=== PATIENT | female | born 1955 | race Two or more races ===

== ENCOUNTER 2017-09-25 11:21 | Outpatient (CLI) | payer OTHER | END 2017-09-25 11:34 | disposition home or self-care (01) | LOC: RAD 11:21 | DX: J45.22 Mild intermittent asthma with status asthmaticus (principal); R05 Cough ==

== ENCOUNTER → 2018-07-20 | Outpatient (CLI) | payer OTHER | END | disposition home or self-care (01) | LOC: RAD 12:24 | DX: M72.2 Plantar fascial fibromatosis (principal); M25.551 Pain in right hip ==

== ENCOUNTER 2019-05-28 10:17 | Emergency (ER) | payer OTHER ==
[~2019-05-28] VITALS: Ht 165.1 cm; Wt 93.0 kg
[2019-05-28] MEDS ORDERED: DIVIGEL1 EAC1 TD (10:49)
[2019-05-28] MEDS ORDERED: WELLBUTRIN XL300 MG PO (10:50)
[2019-05-28] MEDS ORDERED: CIPRO500 MG PO (15:12)
[2019-05-28] MEDS ORDERED: PROBIOTIC1 EAC4 PO (15:13)
== END 2019-05-28 17:48 | disposition home or self-care (01) ==
LOC: ER 10:17
DX: R19.7 Diarrhea, unspecified (principal); E86.0 Dehydration

== ENCOUNTER 2020-11-01 10:42 | Outpatient (CLI) | payer OTHER ==
[~2020-11-01 10:42] MED LIST: CIPRO500 MG PO; DIVIGEL1 EAC1 TD; PROBIOTIC1 EAC4 PO; WELLBUTRIN XL300 MG PO
== END 2020-11-01 11:00 | disposition home or self-care (01) ==
LOC: SONOGRAMA 10:42
PROVIDERS: ATTEND Family Medicine
DX: M65.4 Radial styloid tenosynovitis [de Quervain] (principal); M65.231 Calcific tendinitis, right forearm

== ENCOUNTER 2025-03-29 07:54 | Outpatient (CLI) | payer OTHER | END 2025-03-29 07:59 | disposition home or self-care (01) | LOC: MAMO-SONO 07:54 | PROVIDERS: ATTEND Family Medicine | DX: N60.11 Diffuse cystic mastopathy of right breast (principal); N60.12 Diffuse cystic mastopathy of left breast; Z12.31 Encounter for screening mammogram for malignant neoplasm of breast ==